=== PATIENT | female | born 1955 | race Caucasian/White ===

== ENCOUNTER 2017-01-07 06:20 | Inpatient (IN) | payer BC ==
[~2017-01-07] VITALS: Ht 160 cm; Wt 55.0 kg
[2017-01-07] VITALS (20 sets, daily range): BP systolic 127–154; BP diastolic 61–78; PULSE 57–78; RESP 11–21; Ht 160 cm; Wt 55.0 kg
[~2017-01-07 06:20] MED LIST: CEFAZOLIN 2 GM/50 ML (PMX) 50 ML IVPB SCH
[2017-01-07] MEDS ORDERED: hydrALAzine 20 MG INJ IV PRN ×2 (07:00→12:00)
[2017-01-07] MEDS ORDERED: ATROPINE 1 MG/10 ML SYRINGE IV PRN (07:00)
[2017-01-07] MEDS ORDERED: ONDANSETRON 4 MG INJ IV PRN ×2 (07:00→10:30)
[2017-01-07] MEDS ORDERED: HYDROmorphONE (0.2 MG/ML) 10ML SYG IV PRN ×3 (07:00)
[2017-01-07] MEDS ORDERED: DIPHENHYDRAMINE 50 MG INJ IV PRN (07:00)
[2017-01-07] MEDS ORDERED: EPHEDrine SULFATE 50 MG/5 ML SYG IV PRN (07:00)
[2017-01-07] MEDS ORDERED: LABETALOL HCL 20MG INJ IV PRN (07:00)
[2017-01-07] MEDS ORDERED: OXYCODONE/ACETAMINOPHEN (5/325) TAB PO PRN ×2 (07:00)
[2017-01-07] MEDS ORDERED: MEPERIDINE 25 MG INJ IV PRN (07:00)
[2017-01-07] MEDS ORDERED: morphine (1 MG/ML) 10ML SYRINGE IV PRN ×3 (07:00)
[2017-01-07] MEDS ORDERED: FENTAnyl 50 MCG/ML VIAL IV PRN ×2 (07:00)
[2017-01-07] MEDS ORDERED: MIDAZOLAM 1 MG/ML 2 ML INJ IV PRN (07:00)
[2017-01-07] MEDS ORDERED: LIDOCAINE 2% (SDV) 5 ML INJ ONE (07:02)
[2017-01-07] MEDS ORDERED: ROCURONIUM 50 MG INJ ONE (07:02)
[2017-01-07] MEDS ORDERED: FENTAnyl 50 MCG/ML VIAL ONE (07:03)
[2017-01-07] MEDS ORDERED: GLYCOPYRROLATE 0.4 MG INJ ONE (07:03)
[2017-01-07] MEDS ORDERED: DEXAMETHASONE 4 MG/ML 1 ML INJ ONE (07:03)
[2017-01-07] MEDS ORDERED: PROPOFOL 20 ML ONE (07:03)
[2017-01-07] MEDS ORDERED: NEOSTIGMINE 3 MG/3 ML SYRINGE ONE (07:03)
[2017-01-07] MEDS ORDERED: ONDANSETRON 4 MG INJ ONE (07:03)
[2017-01-07] MEDS ORDERED: MIDAZOLAM 1 MG/ML 2 ML INJ ONE (07:03)
[2017-01-07] MEDS ORDERED: SUGAMMADEX SODIUM 200 MG/2 ML VIAL IV ONE (07:04)
[2017-01-07] MEDS ORDERED: CEFAZOLIN 1 GM INJ ONE (07:10)
--- NOTE | 2017-01-07 07:41 | RADRPT ---
PROCEDURE: XR Chest. CLINICAL INDICATION: Preoperative, right breast mastectomy TECHNIQUE: Single frontal view of the chest was obtained. COMPARISON: None FINDINGS: The heart is within normal limits. The thoracic aorta is calcified. The lungs are clear. There is no pleural effusion or pneumothorax. RPTAT: AA IMPRESSION: No acute disease. Calcified aorta consistent with atherosclerotic disease. .Henry Walls MD, MD Date Time Electronically viewed and signed by .Henry Walls MD, on 01/07/2017 07:40 .S/
[2017-01-07 07:43] LABS: BASOPHILS % 0.4 % (0.0-2.0); EOSINOPHILS # 0.1 10^3/ul (0.0-0.5); EOSINOPHILS % 1.8 % (0.0-7.0); HEMATOCRIT 39.8 % (37.0-47.0); LYMPHOCYTES # 2.7 10^3/ul (0.8-2.9); LYMPHOCYTES % 50.2 % (15.0-51.0); MEAN CORPUSCULAR HEMOGLOBIN 28.6 pg (29.0-33.0); MEAN CORPUSCULAR HGB CONC 32.7 g/dl (32.0-37.0); MEAN CORPUSCULAR VOLUME 87.7 fl (82.0-101.0); MEAN PLATELET VOLUME 9.6 fl (7.4-10.4); MONOCYTE # 0.4 10^3/ul (0.3-0.9); MONOCYTES % 7.9 % (0.0-11.0); NEUTROPHIL # 2.2 10^3/ul (1.6-7.5); NEUTROPHILS % 39.5 % (39.0-77.0); PLATELET COUNT 282 10^3/UL (140-415); RED BLOOD COUNT 4.54 10^6/ul (4.20-5.40); RED CELL DISTRIBUTION WIDTH 13.1 % (11.5-14.5); WHITE BLOOD COUNT 5.4 10^3/ul (4.8-10.8)
[2017-01-07 08:13] LABS: INR 0.91; PROTIME 12.3 Sec (12.2-14.2)
[2017-01-07 08:14] LABS: PARTIAL THROMBOPLASTIN TIME 27.4 Sec (25.0-35.0)
[2017-01-07 08:18] LABS: ALBUMIN 4.3 g/dl (3.3-4.9); ALBUMIN/GLOBULIN RATIO 1.26; BILIRUBIN,INDIRECT 0.2 mg/dl (0-1.1); BILIRUBIN,TOTAL 0.2 mg/dl (0.2-1.3); TOTAL PROTEIN 7.7 g/dl (6.1-8.1)
[2017-01-07 08:22] LABS: CALCIUM 9.4 mg/dl (8.4-10.2); CREATININE 0.95 mg/dl (0.44-1.00)
[2017-01-07] MEDS ORDERED: LABETALOL HCL 20MG INJ ONE (09:08)
[2017-01-07] MEDS ORDERED: hydrALAzine 20 MG INJ ONE (09:39)
--- NOTE | 2017-01-07 10:29 | SIPON ---
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
[2017-01-07] MEDS ORDERED: ACETAMINOPHEN 1000MG/100ML IV 100 ML IVPB PRN (10:30)
[2017-01-07] MEDS: D5W-0.45 NACL + KCL 20 MEQ 1,000 ML IV SCH ×2 (12:36→19:20)
[2017-01-07] MEDS: morphine 2 MG INJ IV PRN (12:37)
--- NOTE | 2017-01-07 15:42 | OPR ---
DATE OF OPERATION: 01/07/2017 PREOPERATIVE DIAGNOSIS: Invasive cancer, right breast. POSTOPERATIVE DIAGNOSIS: Invasive cancer, right breast. OPERATION PERFORMED: Right modified radical mastectomy. ANESTHESIA: General. ANESTHESIOLOGIST: Dr. Avina. SURGEON: Monty Sandy MD ENGINEERING FACULTY MEMBER: None. INDICATIONS FOR PROCEDURE: The patient is a 61-year-old female who presented with invasive cancer o f her right breast approximately 2.5 cm in size. She was counseled as to the option of breast conse rvation surgery versus modified radical mastectomy; however, due to the fact that the tumor appeared to be involving the nipple, the patient was counseled that the best option would likely be modified radical mastectomy. She consented and was scheduled for surgery. DESCRIPTION OF PROCEDURE: The patient was brought to the operating theater, placed under general an esthesia. The right breast and axilla was prepped and draped in usual sterile fashion. Planned ell iptical incision was demarcated with marking pen and carried out with 15 blade scalpel. Subcutaneou s tissue was dissected with cautery. The skin edges were then elevated with [employer]is [place] clamps and skin flaps were created using cautery in a sequential fashion, first superiorly to the clavicle, the n medially to the sternal border, inferiorly to the inframammary fold and laterally until the latiss imus dorsi muscle was identified throughout its course. Mastectomy then took place from medial to l ateral using cautery. At the border of the pectoralis major muscle, the pectoralis minor muscle was identified. The clavipectoral fascia was then incised allowing access into the axilla with blunt d issection along the chest wall. The long thoracic nerve was identified and kept out of harm's way. More superiorly, the axillary vein was identified and dissected from medial to lateral. Care was t aken to preserve the intercostal brachial nerves. The thoracodorsal neurovascular bundle was also i dentified and dissected throughout its course. Node bearing tissue between the long thoracic nerve and thoracodorsal nerve was then meticulously harvested with the LigaSure device. Specimen was jarvis cherrie and sent for permanent pathologic analysis. The wound was irrigated. Dr. Sandy palpated an add itional somewhat firm node in the level 2 portion of the axilla. This node was removed and sent sep arately for pathologic analysis. Two #10 flat Alexander-Galicia drains were then brought through the [facility] mid axillary line, one was cut to size and laid within the axilla, the other was cut to size and laid over the pectoralis major muscle. Both drains were secured in place with 2-0 nylon sutures. The skin was then reapproximated with skin fili. Patient tolerated procedure well. The estimate d blood loss was approximately 40 mL. There were no complications and the patient was transported i n stable condition to the recovery room where circumferential compression dressing was applied. Dictated By: MONTY TY/JERRICA Conf#: [id number] DID#: [id number]
--- NOTE | 2017-01-07 17:40 | HP ---
DATE OF ADMISSION: 01/07/2017 HISTORY OF PRESENT ILLNESS: The patient is a 61-year-old female who denies any chronic condition me dical history. The patient was diagnosed with right breast cancer. She was originally presented wit h 2.6 cm lesion in the right breast with confirmed biopsy for moderately differentiated cancer. Lisa rodrigues was evaluated by Dr. Sandy in surgical consultation. The patient was brought to the hospital a nd underwent right breast modified radical mastectomy. Postoperatively, the past apparently patient experienced moderate pain and the patient will be admitted for further evaluation and management. PAST SURGICAL HISTORY: Status post right breast biopsy. FAMILY HISTORY: Patient stated that she has a daughter with cervical cancer and with stomach cancer . SOCIAL HISTORY: Patient lives at home with her family. The patient denies any tobacco use, denies any alcohol use, denies any illicit drug use. ALLERGIES: NO KNOWN ALLERGIES. HOME MEDICATIONS: No active prescriptions. REVIEW OF SYSTEMS: A 12-point review of systems is negative unless what mentioned in the HPI. PHYSICAL ASSESSMENT: GENERAL: Well-developed, well-nourished female in no acute distress. VITAL SIGNS: Temperature is 97.8, pulse is 68, blood pressure is 150/76, respiratory rate 16, oxyge n saturation is 97% on room air. HEENT: Head is atraumatic, normocephalic. Pupils equal and reactive to light and accommodation. O ral mucosa is pink and moist. NECK: Supple, no cervical lymphadenopathy, no thyromegaly. LUNGS: Clear bilaterally. There is no rhonchi, wheezes, rales noted. CARDIOVASCULAR: Normal S1, S2. No murmurs, gallops, clicks, rubs noted. CHEST: Status post right modified mastectomy with dry, clean and intact surgical dressing and 2 axi llary JPs. ABDOMEN: Flat, soft, nondistended, nontender. Bowel sounds present. No guarding, no rebound tende rness. EXTREMITIES: No edema, clubbing, cyanosis. Pulses equal bilaterally 2+. SKIN: There is no rash, petechiae noted. NEUROLOGIC: Patient is awake, alert and oriented x4. No focal deficits noted. Motor strength 5/5 in all extremities. LABORATORY DATA: On admission, CBC: White blood cells 5.4, hemoglobin 13.0, hematocrit 39.8, plate lets 282. Chemistry: Sodium is 143, potassium 4.0, chloride 109, carbon dioxide 25, anion gap 15, BUN is 20, creatinine 0.95, glucose 101, calcium 9.4, AST 34, ALT 33, alkaline phosphatase 106. PT is 12.33, INR is 0.91, APTT 27.4. ASSESSMENT AND PLAN: Invasive cancer of the right breast status post right modified radical mastec farhana. Continue Tylenol and morphine p.r.n. for pain and Zofran p.r.n. for nausea. Continue IV flui ds and postoperative antibiotics. Advance diet if patient tolerates. CBC and BMP tomorrow. Seque ntial compression device for deep venous thrombosis prophylaxis. Further recommendations based on c linical course. Plan of care discussed with Dr. Ricketts. Dictated By: OMERO PEARSON DIRECTOR OF TECHNOLOGY for MICHELLE RICKETTS MD SR/NTS Conf#: [id number] DID#: [id number]
[2017-01-07] MEDS: SOD CHLORIDE 0.9% 1,000 ML IV SCH ×2 (19:10→19:20)
[2017-01-08] VITALS: BP 124/65; RESP 20
[2017-01-08 02:03] VITALS: BP 137/63; RESP 20
[2017-01-08] MEDS: D5W-0.45 NACL + KCL 20 MEQ 1,000 ML IV SCH ×2 (03:12→10:29)
[2017-01-08 04:00] VITALS: BP 123/70; PULSE 60; RESP 17
[2017-01-08 05:38] LABS: BASOPHILS % 0.1 % (0.0-2.0); HEMOGLOBIN 11.8 g/dl (12.0-16.0); LYMPHOCYTES # 1.7 10^3/ul (0.8-2.9); LYMPHOCYTES % 20.6 % (15.0-51.0); MEAN CORPUSCULAR HEMOGLOBIN 28.5 pg (29.0-33.0); MEAN CORPUSCULAR HGB CONC 31.9 g/dl (32.0-37.0); MEAN CORPUSCULAR VOLUME 89.4 fl (82.0-101.0); MEAN PLATELET VOLUME 10.3 fl (7.4-10.4); MONOCYTE # 0.7 10^3/ul (0.3-0.9); MONOCYTES % 8.9 % (0.0-11.0); NEUTROPHIL # 5.6 10^3/ul (1.6-7.5); NEUTROPHILS % 70.2 % (39.0-77.0); PLATELET COUNT 287 10^3/UL (140-415); RED BLOOD COUNT 4.14 10^6/ul (4.20-5.40)
[2017-01-08 05:48] LABS: CALCIUM 8.8 mg/dl (8.4-10.2); CREATININE 0.7 mg/dl (0.44-1.00); POTASSIUM 4.4 mmol/L (3.5-5.1)
[2017-01-08 08:49] VITALS: BP 149/71; RESP 15
[2017-01-08] MEDS: morphine 2 MG INJ IV PRN (09:29)
[2017-01-08 14:03] VITALS: BP 153/69; RESP 17
[2017-01-08 14:35] VITALS: BP 146/67; PULSE 66
--- NOTE | 2017-01-08 14:46 | PDOCDIS ---
Discharge Instructions CONDITION Patient Condition: Stable HOME CARE INSTRUCTIONS: Special Diet: low sodium due to HTN ACTIVITY: Activity Restrictions: Slowly Increase Activity Rest between Activity Avoid heavy lifting Do not Drive Do not operate Machinery Do not operate Power Tool Avoid Heavy Housework Bathing Restrictions: Sponge Bath FOLLOW UP/APPOINTMENTS Follow-up Plan FU with PMD X [address] [facility] surgery as recommended Call 911 or go to the nearest hospital if symptoms get worse- patient verbalized understanding dc indurations Plan of care dw dr Diaz/staff. ANCELMO BERG Jan 08, 2017 14:46
[2017-01-08] MEDS ORDERED: DOCU-144 PO (14:49)
[2017-01-08] MEDS ORDERED: HYDR-906 PO (14:49)
--- NOTE | 2017-01-08 14:50 | DS ---
Date/Time of Note Date/Time of Note DATE: 01/08/17 TIME: 14:50 Discharge Summary Admission/Discharge Info Admit Date/Time Jan 07, 2017 at 06:20 Discharge Date/Time Home Meds Active Scripts Docusate Sodium* (Colace*) 100 Mg Capsule, 100 MG PO DAILY, #20 CAP Prov:MARSHALLPATY DIMASBIR 01/08/17 Hydrocodone/Acetaminophen ([place] 5-325 Tablet) 1 Each Tablet, 1 EACH PO Q6, #14 TAB Prov:ANCELMO BERG 01/08/17 Follow-up Plan FU with PMD X [address] [facility] surgery as recommended Call 911 or go to the nearest hospital if symptoms get worse- patient verbalized understanding dc indurations Plan of care dw dr Diaz/staff. Primary Care Provider Ramírez Ross Pending Labs Laboratory Tests Test 01/08/17 04:28 White Blood Count 8.010^3/ul (4.8-10.8) Red Blood Count 4.1410^6/ul (4.20-5.40) Hemoglobin 11.8g/dl (12.0-16.0) Hematocrit 37.0% (37.0-47.0) Mean Corpuscular Volume 89.4fl (82.0-101.0) Mean Corpuscular Hemoglobin 28.5pg (29.0-33.0) Mean Corpuscular Hemoglobin Concent 31.9g/dl (32.0-37.0) Red Cell Distribution Width 13.0% (11.5-14.5) Platelet Count 60383^3/UL (140-415) Mean Platelet Volume 10.3fl (7.4-10.4) Neutrophils % 70.2% (39.0-77.0) Lymphocytes % 20.6% (15.0-51.0) Monocytes % 8.9% (0.0-11.0) Eosinophils % 0.0% (0.0-7.0) Basophils % 0.1% (0.0-2.0) Nucleated Red Blood Cells % 0.0/100WBC (0.0-0.0) Neutrophils # 5.610^3/ul (1.6-7.5) Lymphocytes # 1.710^3/ul (0.8-2.9) Monocytes # 0.710^3/ul (0.3-0.9) Eosinophils # 0.010^3/ul (0.0-0.5) Basophils # 0.010^3/ul (0.0-0.1) Nucleated Red Blood Cells # 0.010^3/ul (0.0-0.0) Sodium Level 141mmol/L (135-144) Potassium Level 4.4mmol/L (3.5-5.1) Chloride Level 111mmol/L (97-110) Carbon Dioxide Level 26mmol/L (21-31) Anion Gap 8 (8-16) Blood Urea Nitrogen 9mg/dl (7-20) Creatinine 0.70mg/dl (0.44-1.00) Glucose Level 146mg/dl (70-220) Calcium Level 8.8mg/dl (8.4-10.2) ANCELMO BERG Jan 08, 2017 14:50
--- NOTE | 2017-01-10 04:30 | PN ---
DATE: 01/08/2017 SUBJECTIVE: Complains of moderate right breast pain. The patient is status post right modified radical mastectomy with axillary dissection. Has tolerated diet. Moves her arm easily. There are 2 Alexander-Galicia drains that are draining serosanguineous fluid. OBJECTIVE: VITAL SIGNS: Temperature 98.4, heart rate 81, respirations 15, blood pressure 149/71, saturation 100% on room air. LABORATORY DATA: WBC today 8000 with 70% segmented. Hemoglobin and hematocrit are stable. Chemistry: BUN, creatinine, sodium, potassium normal. Alexander- [place]icia drains last night 324 and 50 mL, and since morning today, one has drained 5 mL, the other one has drained 40 mL serosanguineous fluid. ASSESSMENT AND PLAN: A 61-year-old female with invasive cancer, right breast, almost involving the nipple , underwent modified radical mastectomy with axillary dissection. Postop, she is doing fine. There is some pain which can be tolerated, can be handled by pain medication p.o. Patient has 2 drains draining serosanguineous fluid. The patient can be discharged home today, to be followed by Dr. Tidwell in his office and patient to call on Tuesday and make appointment. Instruction was given how to take care of the Alexander-Galicia, how to empty them and how to record the drainage. Dictated By: LORETTA ZARAGOZA MD PS/NTS Conf#: [id number] DID#: [id number] CC: CHELY TIDWELL MD;*EndCC* MTDD
== END 2017-01-08 16:05 | disposition home or self-care (01) | DRG 581 ==
LOC: REC 06:20 → EDSTATUS 08:30 → MS1 12:15
PROVIDERS: ADMIT Surgery Surgical Oncology; ATTEND Surgery Surgical Oncology
PROC: 07B50ZX Excision of Right Axillary Lymphatic, Open Approach, Diagnostic (ICD-10-PCS; 2017-01-07)
PROC: 0HTT0ZZ Resection of Right Breast, Open Approach (ICD-10-PCS; principal; 2017-01-07 08:30)
DX: C50.411 Malignant neoplasm of upper-outer quadrant of right female breast (principal); I10 Essential (primary) hypertension; Z17.0 Estrogen receptor positive status [ER+]
CPT/HCPCS: 71010; 80048; 80053; 85025; 85610; 85730; 88307; 93005; J0360; J0690; J1100; J1170; J2250; J2270; J2405; J2710; J3010; J3480; J7030